=== PATIENT | male | born 1945 | race American Indian/Alaskan Native ===

== ENCOUNTER 2016-07-02 08:24 | Outpatient (CLI) | payer OTHER ==
[2016-07-02 09:18] LABS: Blood Urea Nitrogen 9 mg/dL (9-20)
[2016-07-02] MEDS ORDERED: NACL ONE (09:20)
--- NOTE | 2016-07-02 10:07 | Cat Scan Report ---
CT of the neck with IV contrast. Findings: The parotid and submandibular glands are normal. There is extensive adenopathy in the left spinal accessory chain with with extension into the supraclavicular region. A largest lymph node in the lower neck measures 3 cm in diameter. A few small nodes are seen in the right supraclavicular region. There are no glottic or subglottic abnormalities. The thyroid is unremarkable. Impression: Bulky adenopathy in the left spinal accessory chain and supraclavicular region with mild involvement of the right supraclavicular region. Lymphoma is a primary diagnostic consideration. These would be amenable to CT directed biopsy if clinically appropriate.
== END 2016-07-02 08:25 | disposition home or self-care (01) ==
LOC: CT 08:24
PROVIDERS: ATTEND Internal Medicine
DX: R22.1 Localized swelling, mass and lump, neck (principal)
CPT/HCPCS: 36415; 70491; 82565; 84520; Q9967

== ENCOUNTER 2016-08-16 07:09 | Day surgery (SDC) | payer OTHER | END 2016-08-16 07:10 | disposition home or self-care (01) | LOC: OPU 07:09 → CT 07:09 → OPU 07:10 → EDSTATUS 07:30 | PROVIDERS: ATTEND Internal Medicine | DX: M51.86 Other intervertebral disc disorders, lumbar region (principal); Z53.8 Procedure and treatment not carried out for other reasons ==